=== PATIENT | male | born 1985 | race African-American/Black ===

== ENCOUNTER 2018-03-14 01:14 | Emergency (ER) | payer OTHER ==
[2018-03-14 01:27] VITALS: BP 145/96; PULSE 56; TEMP 97.9; BMI 25.9
--- NOTE | 2018-03-14 01:55 | PDOC ---
History of Present Illness - General Chief Complaint: Chest Pain Stated Complaint: CHEST PAIN Time Seen by Provider: 03/14/18 01:23 History Source: Patient Exam Limitations: No Limitations - History of Present Illness Initial Comments: 03/14/18 02:30 Best Contact:[phone] PCP:anali Pmhx:0 Pshx: 2007: left 3rd/4th toe bone spur removed Allergies: NKDA FH:0 32-year-old male presents to the ER complaining of midsternal pleuritic chest pain 2 years. Patient states after lifting heavy weights, he feels discomfort to his chest which is exacerbated on touch and alleviated at rest. Patient states he seen physicians at clinics who told him he has chest wall pain from lifting weights. Patient denies fever, chills, headache, dizziness, lightheadedness, facial pain, neck pain/stiffness, back pains, chest pain, shortness of breath, abdominal pains, flank pains, urinary symptoms, extremity numbness or tingling sensation, extremity swelling. Patient states he feels better since arriving to the emergency department. Patient states he will go right back to the [place] when he moves patient states he was at a bus stop for approximately 1-1/2 hours waiting for the bus then never came and decided to come to the ER so we can give him a ride back to the [place]. Past History - Past Medical History Allergies/Adverse Reactions: Allergies Allergy/AdvReac Type Severity Reaction Status Date / Time No Known Allergies Allergy Verified 03/14/18 01:20 Home Medications: Ambulatory Orders NK [No Known Home Medication] 03/14/18 - Suicide/Smoking/Psychosocial Hx Smoking History: Current every day smoker Have you smoked in the past 12 months: No Number of Cigarettes Smoked Daily: 4 Information on smoking cessation initiated: No Hx Alcohol Use: No Drug/Substance Use Hx: No Review of Systems - Review of Systems Able to Perform ROS?: Yes Comments:: 03/14/18 02:28 CONSTITUTIONAL: Absent: fever, chills, diaphoresis, generalized weakness, malaise, loss of appetite HEENT: Absent: rhinorrhea, nasal congestion, throat pain, throat swelling, difficulty swallowing, mouth swelling, ear pain, eye pain, visual Changes CARDIOVASCULAR: +Mid chest pain on deep inspiration Absent: loss of consciousness, palpitations, irregular heart rate, peripheral edema RESPIRATORY: Absent: cough, shortness of breath, dyspnea with exertion, orthopnea, wheezing, stridor, hemoptysis GASTROINTESTINAL: Absent: abdominal pain, abdominal distension, nausea, vomiting, diarrhea, constipation, melena, hematochezia GENITOURINARY: Absent: dysuria, frequency, urgency, hesitancy, hematuria, flank pain, genital pain MUSCULOSKELETAL: Absent: myalgia, arthralgia, joint swelling SKIN: Absent: rash, itching, pallor HEMATOLOGIC/IMMUNOLOGIC: Absent: easy bleeding, easy bruising, lymphadenopathy, frequent infections ENDOCRINE: Absent: unexplained weight gain, unexplained weight loss, heat intolerance, cold intolerance Is the patient limited Ecuadorean proficient: No *Physical Exam - Vital Signs Last Vital Signs Temp Pulse Resp BP Pulse Ox 97.9 F 56 L 18 145/96 100 03/14/18 01:21 03/14/18 01:21 03/14/18 01:21 03/14/18 01:21 03/14/18 01:21 - Physical Exam Comments: 03/14/18 02:29 GENERAL: Well developed, well nourished. Awake and alert. No acute distress. HEENT: Normocephalic, atraumatic. PERRLA, EOMI. No conjunctival pallor. Sclera are non- icteric. Moist mucous membranes. Oropharynx is clear. NECK: Supple. Full ROM. No JVD. Carotid pulses 2+ and symmetric, without bruits. No thyromegaly. No lymphadenopathy. CARDIOVASCULAR: Regular rate and rhythm. No murmurs, rubs, or gallops. Distal pulses are 2+ and symmetric. PULMONARY: No evidence of respiratory distress. Lungs clear to auscultation bilaterally. No wheezing, rales or rhonchi. ABDOMINAL: Soft. Non-tender. Non-distended. No rebound or guarding. No organomegaly. Normoactive bowel sounds. MUSCULOSKELETAL Normal range of motion at all joints. No bony deformities or tenderness. No CVA tenderness. EXTREMITIES: No cyanosis. No clubbing. No edema. No calf tenderness. SKIN: Warm and dry. Normal capillary refill. No rashes. No jaundice. NEUROLOGICAL: Alert, awake, appropriate. Cranial nerves 2-12 intact. No deficits to light touch and temperature in face, upper extremities and lower extremities. No motor deficits in the in face, upper extremities and lower extremities. Normoreflexic in the upper and lower extremities. Normal speech. Toes are down- going bilaterally. Gait is normal without ataxia. PSYCHIATRIC: Cooperative. Good eye contact. Appropriate mood and affect. Heart Score/ECG Review - History History: Slightly suspicious - Electrocardiogram EKG: Normal - Age Age: 45-65 - Risk Factors Risk Factors Heart Score: Yes Smoking History Based on the list above the patient has:: 1-2 risk factors - Troponin Troponin: </= normal limit - Score Heart Score - Total: 2 ED Treatment Course - LABORATORY CBC & Chemistry Diagram: 03/14/18 01:54 03/14/18 01:54 - ADDITIONAL ORDERS Additional order review: Laboratory Results 03/14/18 01:54 Sodium 139 Potassium 3.6 Chloride 105 Carbon Dioxide 28 Anion Gap 5 L BUN 16 Creatinine 1.0 Creat Clearance w eGFR > 60 Random Glucose 104 Calcium 8.6 Total Bilirubin 0.3 AST 22 ALT 31 Alkaline Phosphatase 92 Creatine Kinase 152 Troponin I < 0.02 Total Protein 7.0 Albumin 3.4 03/14/18 01:54 RBC 4.28 MCV 89.3 MCHC 34.7 RDW 13.6 MPV 8.2 Neutrophils % 51.5 Lymphocytes % 32.9 Monocytes % 12.4 H Eosinophils % 2.1 Basophils % 1.1 *DC/Admit/Observation/Transfer Diagnosis at time of Disposition: Costochondral chest pain - Discharge Dispostion Condition at time of disposition: Stable Decision to Admit order: No - Referrals - Patient Instructions Printed Discharge Instructions: DI for Atypical Chest Pain, DI for Costochondritis Additional Instructions: Motrin every 6 hours as needed for pain Rest follow-up with your physician this week Return back to the emergency department for severe/persistent worsening pain or recurrent pain - Post Discharge Activity
[2018-03-14 02:07] LABS: BASO % 1.1 % (0-2.0); EOS % 2.1 % (0-4.5); HEMATOCRIT 38.2 % (35.4-49); HEMOGLOBIN 13.3 GM/dL (11.7-16.9); LYMPH % 32.9 % (8-40); MCHC 34.7 g/dl (32.0-35.9); MEAN CELL VOLUME 89.3 fl (80-96); MEAN PLT VOLUME 8.2 fl (7.5-11.1); MONO % 12.4 % (3.8-10.2); NEUT % 51.5 % (42.8-82.8); PLATELET COUNT 188 K/MM3 (134-434); RBC 4.28 M/mm3 (4.00-5.60); RDW 13.6 % (11.9-15.9); WHITE BLOOD COUNT 5.9 K/mm3 (4.0-10.0)
[2018-03-14 02:32] LABS: ALBUMIN 3.4 g/dl (3.4-5.0); ALK PHOS 92 U/L (45-117); ANION GAP 5 MMOL/L (8-16); BILIRUBIN,TOTAL 0.3 mg/dL (0.2-1); BLOOD UREA NITROGEN 16 mg/dL (7-18); CALCIUM 8.6 mg/dL (8.5-10.1); CHLORIDE 105 mmol/L (98-107); CO2 28 mmol/L (21-32); GLUCOSE,RANDOM 104 mg/dL (74-106); POTASSIUM 3.6 mmol/L (3.5-5.1); SGOT/AST 22 U/L (15-37); SGPT/ALT 31 U/L (13-61); SODIUM 139 mmol/L (136-145)
--- NOTE | 2018-03-14 13:35 | EKG ---
Test Reason : Blood Pressure : / mmHG Vent. Rate : 054 BPM Atrial Rate : 054 BPM P-R Int : 176 ms QRS Dur : 100 ms QT Int : 418 ms P-R-T Axes : 047 -03 009 degrees QTc Int : 396 ms SINUS BRADYCARDIA VOLTAGE CRITERIA FOR LEFT VENTRICULAR HYPERTROPHY ABNORMAL ECG NO PREVIOUS ECGS AVAILABLE Confirmed by REECE CACERES MD ([id number]) on 03/14/2018 1:35:13 PM Referred By: Confirmed By:REECE CACERES MD
== END 2018-03-14 03:18 | disposition home or self-care (01) ==
LOC: JER 01:14
DX: M94.0 Chondrocostal junction syndrome [Tietze] (principal); X50.0XXA Overexertion from strenuous movement or load, initial encounter; Y93.B3 Activity, free weights; Y92.89 Other specified places as the place of occurrence of the external cause; Y99.8 Other external cause status
CPT/HCPCS: 36415; 80053; 82550; 82553; 84484; 85025; 93005; 93010; 99284-25